=== PATIENT | male | born 1995 | race American Indian/Alaskan Native ===

== ENCOUNTER 2019-05-30 19:05 | Emergency (ER) | payer BC ==
[2019-05-30 19:17] VITALS: BP 153/86
--- NOTE | 2019-05-30 19:21 | Emergency Department Report ---
Stated Complaint: POS COVID/ACHES Time Seen by Provider: 05/30/19 19:16 - HPI History of Present Illness: 24 y/o male comes in for MSE screening note: Focused history and physical exam performed. Due to findings the following was ordered: ED Disposition for MSE Clinical Impression: Suspected 2019-nCoV infection Disposition: Z- MED SCREENING EXAM-LEFT Is pt being admited?: No Does the pt Need Aspirin: No Condition: Stable Additional Instructions: Increase fluids take Over the counter vitamins including zinc, vitamin C. You are placed on Quarantine for 14 days. Return to ER if you start having a fever short of breath. Referrals: ROSA VERA MD [Staff Physician] - 3-5 Days Forms: Work/School Release Form(ED)
== END 2019-05-30 19:45 | disposition left against medical advice (07) ==
LOC: ED 19:05
DX: M79.18 Myalgia, other site (principal); Z53.21 Procedure and treatment not carried out due to patient leaving prior to being seen by health care provider
CPT/HCPCS: 99281